=== PATIENT | male | born 1990 | race Caucasian/White ===

== ENCOUNTER → 2022-08-22 | Outpatient (CLI) | payer SELFPAY ==
--- NOTE | 2022-08-22 14:10 | CT_ITS ---
STUDY: CT RIGHT WRIST WITHOUT CONTRAST REASON FOR EXAM: Male, 32 years old. Wrist fracture. Evaluation. RADIATION DOSAGE (If Supplied By Facility): CTDIvol = ( 24.58 ) mGy, DLP = ( 376.22 ) mGycm TECHNIQUE: Transaxial CT imaging of the knee was performed. Coronal and sagittal images were reformatted. Individualized dose optimization techniques were used for this CT. COMPARISON: None. FINDINGS: Oblique fracture through the waist of the navicular with minimal displacement. Minimal sclerosis of the proximal navicular. No other abnormality present. Normal soft tissues. CT/Extremity Upper without Contra IMPRESSION: Oblique minimally displaced fracture of the waist of the scaphoid with minimal sclerosis of the proximal pole of the scaphoid. No other abnormality present. Electronically Signed: Demetrio Jaramillo, at 9:37 EST ,
== END | disposition home or self-care (01) ==
PROVIDERS: PCP Family Medicine; Visit Provider Student in an Organized Health Care Education/Training Program
DX: S62.024D Nondisplaced fracture of middle third of navicular [scaphoid] bone of right wrist, subsequent encounter for fracture with routine healing (principal)
CPT/HCPCS: 73200